=== PATIENT | female | born 1990 | race Caucasian/White ===

== ENCOUNTER 2020-05-03 05:36 | Inpatient (IN) ==
[2020-05-03] MEDS ORDERED: ONDANSETRON 4 MG/2 ML VIAL IV PRN ×2 (05:49→08:28)
[2020-05-03 06:28] LABS: Basophils % 0.1 % (0.0-0.8); Eosinophils # 0.1 10*3/uL (0.0-0.87); Eosinophils % 0.7 % (0.00-10.9); Hematocrit 33.9 VOL% (35.7-47.0); Hemoglobin 10.5 GM/DL (12.0-16.0); Immature Granulocytes % 1.2 %; Immature Granulocytes Absolute 0.16 #; Lymphocytes # 1.9 10*3/uL (1.4-4.0); Lymphocytes % 14.1 % (21.3-54.2); Mean Corpuscular Volume 88.5 FL (87-102); Mean Platelet Volume 10.8 FL (9.6-12.0); Monocytes % 8.2 % (1.7-12.7); Neutrophils % 75.7 % (38.7-73.9); Platelet Count 208 T/CUMM (130-400); Red Blood Count 3.83 MC/CUMM (3.8-5.5); Red Cell Distribution Width 13.3 % (9.3-17.3); White Blood Count 13.5 T/CUMM (4-12)
[2020-05-03] MEDS ORDERED: ROPIVACAINE 0.5% 30 ML VIAL ONE (06:44)
[2020-05-03] MEDS ORDERED: PHENYLEPHRINE 1 MG/10 ML SYRINGE IV ONE (06:44)
[2020-05-03] MEDS ORDERED: BUPIVACAINE SPINAL 0.75% 2 ML AMP SPINAL ONE (06:45)
[2020-05-03] MEDS ORDERED: MORPHINE 10 MG/10 ML VIAL ONE (06:45)
[2020-05-03] MEDS ORDERED: DEXAMETHASONE 4 MG/1 ML VIAL ONE (06:45)
[2020-05-03] MEDS: LACTATED RINGERS 1,000 ML IV SCH ×2 (06:50→16:27)
[2020-05-03] MEDS ORDERED: ceFAZolin 2,000 MG in PREMIX 1 EACH IV ONE (07:00)
[2020-05-03] MEDS ORDERED: CITRIC ACID/SODIUM CITRATE 30 ML UDCUP PO ONE (07:00)
[2020-05-03 07:03] LABS: Albumin 2.3 G/DL (3.4-5.0); Bilirubin,Total 0.4 MG/DL (0.2-1.0); Calcium 8.7 MG/DL (8.5-10.1); Total Protein 6.8 G/DL (6.4-8.3)
[2020-05-03] MEDS ORDERED: FAMOTIDINE 20 MG/2 ML VIAL IV ONE (07:08)
[2020-05-03] MEDS ORDERED: miSOPROStoL 200 MCG TABLET ONE (07:10)
[2020-05-03] MEDS ORDERED: OXYTOCIN/LR 20 UNIT/1,000 ML BAG IV ONE ×2 (07:10→08:54)
[2020-05-03] MEDS ORDERED: CARBOPROST TROMETHAMINE 250 MCG/ML AMP IM ONE (07:10)
[2020-05-03] MEDS ORDERED: TRANEXAMIC ACID 1,000 MG/10 ML VIAL ONE (07:10)
[2020-05-03] MEDS ORDERED: METHYLERGONOVINE 0.2 MG/1 ML AMP ONE (07:10)
[2020-05-03 08:28] LABS: Apearance,Urine CLEAR (Clear); Bilirubin,Urine Negative (Negative); Blood, Urine Small mg/dL (Negative); Glucose,Urine (UA) Negative (Negative); Ketones,Urine Negative (Negative); Nitrite,Urine Negative (Negative); Protein,Urine Negative; RBC,Urine <1 /HPF (0-4); Urine Color Colorless (Yellow); Urine Specific Gravity 1.002 (1.001-1.035); Urine Urobilinogen < 2.0 EU/DL (0.2-1.0); WBC,Urine <1 /HPF (0-6)
[2020-05-03] MEDS ORDERED: OXYTOCIN 20 UNIT in SODIUM CHLORIDE 0.9% 1,000 ML IV ONE (08:28)
[2020-05-03] MEDS ORDERED: SIMETHICONE CHEW 80 MG TABLET PO PRN (08:28)
[2020-05-03] MEDS ORDERED: ACETAMINOPHEN 325 MG TABLET PO PRN (08:28)
[2020-05-03] MEDS ORDERED: RHO(D) IMMUNE GLOBULIN 300 MCG SYRINGE IM ONE (08:28)
[2020-05-03] MEDS ORDERED: ceFAZolin 1,000 MG in SYRINGE 1 EACH IV SCH (08:30)
[2020-05-03] MEDS ORDERED: LACTATED RINGERS 1,000 ML IV SCH (08:30)
[2020-05-03] MEDS ORDERED: HYDROmorphone 2 MG TABLET PO PRN (08:31)
[2020-05-03] MEDS: ACETAMINOPHEN 500 MG TABLET PO SCH ×3 (10:37→22:33)
[2020-05-03] MEDS: KETOROLAC 30 MG/1 ML VIAL IV SCH ×3 (10:38→22:33)
[2020-05-03] MEDS: ceFAZolin 1,000 MG in SYRINGE 1 EACH IV SCH ×2 (15:09→22:47)
[2020-05-03 17:05] LABS: Basophils % 0.1 % (0.0-0.8); Hematocrit 33.6 VOL% (35.7-47.0); Hemoglobin 10.4 GM/DL (12.0-16.0); Immature Granulocytes % 0.9 %; Lymphocytes # 1.1 10*3/uL (1.4-4.0); Mean Corpuscular Volume 88.4 FL (87-102); Monocytes % 3.3 % (1.7-12.7); Neutrophils % 90.7 % (38.7-73.9); Platelet Count 206 T/CUMM (130-400); Red Cell Distribution Width 13.2 % (9.3-17.3); White Blood Count 22.7 T/CUMM (4-12)
[2020-05-03 17:45] LABS: Anisocytosis Slight; Hypochromasia 2+; Lymphocytes 7 % (20-55); Microcytosis 2+; Segmented Neutrophils 88 % (50-85); Total Cells Counted 100
[2020-05-03] MEDS ORDERED: diphenhydrAMINE 50 MG/1 ML VIAL IM PRN ×2 (22:31→22:57)
[2020-05-03] MEDS: DOCUSATE SODIUM 100 MG CAPSULE PO SCH ×2 (22:32→22:33)
[2020-05-03] MEDS ORDERED: diphenhydrAMINE 50 MG/1 ML VIAL IV PRN (23:00)
[2020-05-04] MEDS: ACETAMINOPHEN 500 MG TABLET PO SCH (04:32)
[2020-05-04] MEDS: KETOROLAC 30 MG/1 ML VIAL IV SCH (04:36)
[2020-05-04 05:53] LABS: Basophils % 0.2 % (0.0-0.8); Eosinophils % 0.2 % (0.00-10.9); Hematocrit 28.4 VOL% (35.7-47.0); Immature Granulocytes % 0.8 %; Immature Granulocytes Absolute 0.15 #; Lymphocytes # 2.5 10*3/uL (1.4-4.0); Lymphocytes % 12.9 % (21.3-54.2); Mean Corpuscular HGB Conc 31.7 GM/DL (32-36); Mean Corpuscular Volume 87.9 FL (87-102); Mean Platelet Volume 11.2 FL (9.6-12.0); Monocytes % 7.6 % (1.7-12.7); Neutrophils % 78.3 % (38.7-73.9); Platelet Count 186 T/CUMM (130-400); Red Blood Count 3.23 MC/CUMM (3.8-5.5); Red Cell Distribution Width 13.2 % (9.3-17.3); White Blood Count 19.2 T/CUMM (4-12)
[2020-05-04] MEDS: MULTIVITAMIN (PRENATAL) TABLET PO SCH (09:06)
[2020-05-04] MEDS: DOCUSATE SODIUM 100 MG CAPSULE PO SCH ×2 (09:06→21:06)
[2020-05-04] MEDS: IBUPROFEN 800 MG TABLET PO PRN ×2 (09:09→17:45)
[2020-05-04] MEDS: oxyCODONE/ACETAMINOPHEN 5-325 MG TABLET PO PRN ×2 (13:25→22:14)
[2020-05-04] MEDS: MAGNESIUM HYDROXIDE SUSP 30 ML UDCUP PO PRN (13:40)
[2020-05-05] MEDS: IBUPROFEN 800 MG TABLET PO PRN (06:27)
[2020-05-05] MEDS: DOCUSATE SODIUM 100 MG CAPSULE PO SCH (07:30)
[2020-05-05] MEDS: MAGNESIUM HYDROXIDE SUSP 30 ML UDCUP PO PRN (07:30)
[2020-05-05] MEDS: MULTIVITAMIN (PRENATAL) TABLET PO SCH (07:30)
[2020-05-05] MEDS ORDERED: BUTALBITAL/ACETAMIN/CAFFEINE 50-325-40 MG TABLET PO ONE (11:37)
[2020-05-05] MEDS ORDERED: SUMAtriptan 6 MG/0.5 ML VIAL SUBCUT ONE (11:38)
[2020-05-05 11:58] VITALS: BP 136/84
[2020-05-05] MEDS ORDERED: BUTALBITAL/ACETAMIN/CAFFEINE 50-325-40 MG TABLET PO SCH (19:30)
== END 2020-05-05 14:00 | disposition home or self-care (01) | DRG 788 ==
LOC: N.LDOUT 05:36 → N.LD 05:41 → N.OB 11:12
PROVIDERS: ADMIT Obstetrics & Gynecology; ATTEND Obstetrics & Gynecology
PROC: LDCSECT (ICD-10-PCS; 2020-05-03 07:30)